=== PATIENT | male | born 1990 | race African-American/Black ===

== ENCOUNTER 2020-06-19 03:50 | Emergency (ER) | payer SELFPAY ==
[~2020-06-19] VITALS: Ht 180.3 cm; Wt 80.0 kg
[2020-06-19 05:56] VITALS: BP 112/67
[2020-06-19] MEDS ORDERED: NALO4SPR BOTHNSTRLS (06:00)
== END 2020-06-19 06:24 | disposition home or self-care (01) ==
LOC: ER 03:59
DX: T40.601A Poisoning by unspecified narcotics, accidental (unintentional), initial encounter (principal); F17.210 Nicotine dependence, cigarettes, uncomplicated; Y92.018 Other place in single-family (private) house as the place of occurrence of the external cause
CPT/HCPCS: 93005; 99283